=== PATIENT | female | born 1935 | race Hispanic/Latino ===

== ENCOUNTER 2019-11-11 09:29 | Emergency (ER) | payer MEDICARE, BC ==
[2019-11-11] MEDS ORDERED: Bacitracin 1 PK ONE (09:36)
--- NOTE | 2019-11-11 10:11 | CT ---
CT BRAIN NONCONTRAST: DATE: 11/11/2019 HISTORY: 83-year-old female status post head trauma from fall FINDINGS: There is no evidence of acute intra-axial or extra-axial hemorrhage. There is no midline shift or any other mass effect. There is no extra-axial fluid collection. There is no evidence of obstructive hydrocephalus. Calvarium is intact. There is diffuse brain parenchymal volume loss. There are low att enuation areas in the white matter. These are nonspecific, but in a patient of this age, they are probably chronic ischemic white matter changes due to microvascular atherosclerosis. Tiny old lacunar infarction in left basal ganglia. Tiny old lacunar infarction in right arlen. Total opacification of bilateral external auditory canals by soft tissue density. IMPRESSION: 1) No acute intracranial findings. 2) advanced brain atrophy and severe chronic ischemic white matter changes. 3) tiny old lacunar infarctions in left basal ganglia and right arlen. 4) total opacification of bilateral external auditory canals. 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
== END 2019-11-11 12:50 ==
LOC: NAV ERS 09:29
DX: S09.90XA Unspecified injury of head, initial encounter (principal); S51.012A Laceration without foreign body of left elbow, initial encounter; I10 Essential (primary) hypertension; Z79.899 Other long term (current) drug therapy; W06.XXXA Fall from bed, initial encounter
CPT/HCPCS: 70450

== ENCOUNTER 2019-11-21 13:10 | Outpatient (CLI) | payer MEDICARE, BC ==
--- NOTE | 2019-11-21 14:38 | CT ---
EXAM: LEFT LOWER EXTREMITY CT SCAN WITHOUT IV CONTRAST: 11/21/19 HISTORY: Abnormal CT finding, injury. FINDINGS: There is evidence for a solid comminuted, somewhat vertically oriented fracture through the lateral a spect of the left sacral ala. Comminuted fracture through the right pubis bone and left ischiopubic r amus as well as displaced slightly comminuted fractures of the right and left inferior ischiopubic ra mi. There is a small punctate focus of soft tissue gas which appears to be within the right external obturator muscle, nonspecific, soft tissue gas can be seen in association with infection, post inject ion, or related to an open wound. The left hip and femur appear intact. IMPRESSION: Comminuted fractures of the right and left superior pubic and ischiopubic rami and right and left inf erior ischiopubic rami as well as a nondisplaced vertical fracture of the left lateral sacral ala. No evidence for left hip or femur fracture. Small punctate focus of gas in the right obturator muscle of uncertain etiology or significance. POS: RRE
== END 2019-11-21 13:11 | disposition home or self-care (01) ==
LOC: NAV CT 13:10
PROVIDERS: ATTEND Internal Medicine
DX: R93.89 Abnormal findings on diagnostic imaging of other specified body structures (principal); S32.511A Fracture of superior rim of right pubis, initial encounter for closed fracture; S32.512A Fracture of superior rim of left pubis, initial encounter for closed fracture; S32.10XA Unspecified fracture of sacrum, initial encounter for closed fracture; R93.7 Abnormal findings on diagnostic imaging of other parts of musculoskeletal system

== ENCOUNTER 2020-01-28 18:37 | Emergency (ER) | payer MEDICARE, BC, OTHER ==
--- NOTE | 2020-01-28 20:55 | CT ---
CT OF BRAIN PERFORMED WITHOUT CONTRAST ENHANCEMENT: 01/28/20 HISTORY: Fall with head injury, dementia. COMPARISON: A 11/11/19 exam. Marked atrophy present. There are chronic white matter change noted. There is no hemorrhage or mass e ffect. No interval change since the prior exam. IMPRESSION: Marked atrophy with chronic white matter change. No acute intracranial abnormalities. POS: NEFTALI
== END 2020-01-28 22:10 ==
LOC: NAV ERS 18:37
DX: Z04.3 Encounter for examination and observation following other accident (principal); G30.9 Alzheimer's disease, unspecified; F02.80 Dementia in other diseases classified elsewhere, unspecified severity, without behavioral disturbance, psychotic disturbance, mood disturbance, and anxiety; I10 Essential (primary) hypertension; I70.90 Unspecified atherosclerosis; M19.90 Unspecified osteoarthritis, unspecified site; Z87.442 Personal history of urinary calculi; Z79.899 Other long term (current) drug therapy
CPT/HCPCS: 70450

== ENCOUNTER → 2022-04-06 | Emergency (ER) | payer MEDICARE, BC, OTHER | LOC: NAV ERS 08:16 | DX: S00.12XA Contusion of left eyelid and periocular area, initial encounter (principal); G30.9 Alzheimer's disease, unspecified; F02.80 Dementia in other diseases classified elsewhere, unspecified severity, without behavioral disturbance, psychotic disturbance, mood disturbance, and anxiety; I10 Essential (primary) hypertension; W19.XXXA Unspecified fall, initial encounter; Z79.02 Long term (current) use of antithrombotics/antiplatelets; Z79.899 Other long term (current) drug therapy; Z79.82 Long term (current) use of aspirin | CPT/HCPCS: 70450 ==